=== PATIENT | female | born 1970 | race African-American/Black ===

== ENCOUNTER 2017-01-26 05:33 | Inpatient (IN) | payer MEDICAID ==
[~2017-01-26] VITALS: Ht 165.1 cm; Wt 77.1 kg
[2017-01-26] MEDS ORDERED: LACTATED RINGERS 1,000 ML IV SCH (07:40)
[2017-01-26 08:05] LABS: EOSINOPHILS % 3.4 % (0.0-5.0); HEMATOCRIT. 31.1 % (36.0-48.0); HEMOGLOBIN. 9.8 g/dL (12.0-16.0); LYMPHOCYTES % 22.3 % (20.0-50.0); MEAN CORPUSCULAR HEMOGLOBIN 25.6 pg (28.0-32.0); MEAN CORPUSCULAR VOLUME 80.9 fL (81.0-99.0); MONOCYTES % 9.4 % (2.0-8.0); NEUTROPHILS % 63.9 % (40.0-76.0); PLATELET 319 x1000/uL (130-400); RED BLOOD CELL COUNT 3.84 mill/uL (4.2-5.4); RED CELL DISTRIBUTION WIDTH 17.4 % (11.6-14.6)
[2017-01-26 08:09] LABS: GLUCOSE URINE NEGATIVE (NEGATIVE); KETONES URINE NEGATIVE (NEGATIVE); LEUKOCYTE ESTERASE URINE NEGATIVE (NEGATIVE); NITRITE URINE NEGATIVE (NEGATIVE); OCCULT BLOOD URINE NEGATIVE (NEGATIVE); PROTEIN URINE NEGATIVE (NEGATIVE); SPECIFIC GRAVITY URINE 1.029 (1.005-1.030); UROBILINOGEN URINE 0.2 E.U./dL (0.2-1.0)
[2017-01-26 08:11] LABS: CLARITY URINE CLEAR (CLEAR); COLOR URINE YELLOW (YELLOW)
[2017-01-26 08:13] LABS: UCG SCREEN NEGATIVE
[2017-01-26 08:13] LABS: PARTIAL THROMBOPLASTIN TIME 25.9 sec (23.4-31.0); PROTHROMBIN TIME 10.6 sec (9.4-11.6)
[2017-01-26 08:16] LABS: CARBON DIOXIDE 25 mEq/L (21-32); CHLORIDE 108 mEq/L (98-107)
[2017-01-26] MEDS ORDERED: BACL20TA PO (09:28)
[2017-01-26] MEDS ORDERED: LEVO25TA7 PO (09:28)
[2017-01-26] MEDS ORDERED: LORA10TA7 PO (09:28)
[2017-01-26] MEDS ORDERED: NAPR-681 PO (09:28)
[2017-01-26] MEDS ORDERED: TRAM50TA3 PO (09:28)
[2017-01-26] MEDS ORDERED: MELO-106 PO (09:28)
[2017-01-26] MEDS ORDERED: HYDR-4005 PO (09:28)
[2017-01-26] MEDS ORDERED: GABA-529 PO (09:28)
[2017-01-26] MEDS ORDERED: BUSP5TAB3 PO (09:28)
[2017-01-26] MEDS ORDERED: GABA-531 PO (09:36)
[2017-01-26] MEDS ORDERED: LEVO100T9 PO (09:36)
[2017-01-26] MEDS ORDERED: GELATIN SPONGE,ABSORBABLE SZ 100 ONE (10:33)
[2017-01-26] MEDS ORDERED: LIDOCAINE HCL 1%/EPI 1:200,000 30 ML VIAL ONE (10:34)
[2017-01-26] MEDS ORDERED: THROMBIN (BOVINE) 5000 UNITS/VIAL TOP ONE (10:34)
[2017-01-26] MEDS ORDERED: BACITRACIN ZINC 15GM TUBE TOP ONE (10:34)
[2017-01-26] MEDS ORDERED: BACITRACIN 50,000 UNITS/VIAL ONE (10:35)
[2017-01-26] MEDS ORDERED: NORMAL SALINE 0.9% 10 ML SYR ONE (10:35)
[2017-01-26] MEDS ORDERED: DEXAMETHASONE 4MG/ML 1ML VIAL ONE ×3 (11:17→12:22)
[2017-01-26] MEDS ORDERED: ACETAMINOPHEN 325MG TABLET PO PRN (11:30)
[2017-01-26] MEDS ORDERED: ONDANSETRON HCL 4MG/2ML VIAL IV PRN ×2 (11:30→13:45)
[2017-01-26] MEDS ORDERED: CLONIDINE 0.1MG TABLET PO PRN (11:30)
[2017-01-26] MEDS ORDERED: IPRATROPIUM/ALBUTEROL 0.5-3(2.5)MG/3ML NEB INH PRN (11:30)
[2017-01-26] MEDS ORDERED: DIPHENHYDRAMINE 50MG/ML VIAL IV PRN (11:30)
[2017-01-26] MEDS ORDERED: CEFAZOLIN SODIUM 1000MG/VIAL ONE (12:22)
[2017-01-26] MEDS ORDERED: ROCURONIUM BROMIDE 10MG/ML VIAL 5ML IV ONE (12:22)
[2017-01-26] MEDS ORDERED: HYDROMORPHONE HCL/PF 2MG/ML (OR) ONE (12:42)
[2017-01-26] MEDS ORDERED: LABETALOL HCL 5MG/ML VIAL 20ML IV ONE (12:44)
[2017-01-26] MEDS ORDERED: HYDROMORPHONE HCL/PF 2MG/ML CPJ IV PRN (13:45)
[2017-01-26] MEDS ORDERED: LABETALOL HCL 20MG/4ML CARPUJECT IV PRN (13:45)
[2017-01-26] MEDS ORDERED: MEPERIDINE HCL/PF 25MG/ML CPJ IV PRN (13:45)
[2017-01-26] MEDS ORDERED: GLYCOPYRROLATE 0.2 MG/ML 2ML VIAL ONE (13:51)
[2017-01-26] MEDS ORDERED: NEOSTIGMINE METHYLSULFATE 1MG/ML 10 ML VIAL ONE (13:51)
[2017-01-26] MEDS ORDERED: CEFAZOLIN 1000MG/50ML PREMIX IV SCH (14:00)
[2017-01-26] MEDS ORDERED: ONDANSETRON INJ IV PRN (14:30)
[2017-01-26] MEDS ORDERED: HYDROMORPHONE PCA 10MG/50ML IV PRN (14:30)
[2017-01-26] MEDS ORDERED: NALOXONE INJ IV PRN (14:30)
[2017-01-26] MEDS ORDERED: DIPHENHYDRAMINE INJ IV PRN (14:30)
[2017-01-26 17:40] VITALS: BP 107/59
[2017-01-26 18:00] VITALS: BP 107/59
[2017-01-26] MEDS: CEFAZOLIN 1000MG PREMIX 50 ML IV SCH (23:42)
[2017-01-26] MEDS: DEXT 5%/LACTATED RINGERS 1,000 ML IV SCH (23:44)
[2017-01-27] VITALS: BP 106/50
[2017-01-27 04:00] VITALS: BP 100/48
[2017-01-27 08:00] VITALS: BP 99/51
[2017-01-27] MEDS: CEFAZOLIN 1000MG PREMIX 50 ML IV SCH ×2 (09:27→22:49)
[2017-01-27 12:00] VITALS: BP 104/51
[2017-01-27] MEDS: DEXT 5%/LACTATED RINGERS 1,000 ML IV SCH (15:42)
[2017-01-27] MEDS: MORPHINE SULFATE 2 MG/ML CPJ (NOT FOR IM USE) IV PRN ×2 (19:23→23:44)
[2017-01-27 20:00] VITALS: BP 109/57
[2017-01-28] VITALS: BP 114/65
[2017-01-28 04:00] VITALS: BP 112/57
[2017-01-28] MEDS: MORPHINE SULFATE 2 MG/ML CPJ (NOT FOR IM USE) IV PRN ×4 (04:36→20:08)
[2017-01-28 08:00] VITALS: BP 97/50
[2017-01-28] MEDS: DEXT 5%/LACTATED RINGERS 1,000 ML IV SCH (11:19)
[2017-01-28 12:00] VITALS: BP 129/98
[2017-01-28 16:00] VITALS: BP 113/52
[2017-01-28] MEDS: DOCUSATE SODIUM 100MG CAPSULE PO SCH (16:53)
[2017-01-28] MEDS: LEVOTHYROXINE SODIUM 100MCG TABLET PO SCH (18:23)
[2017-01-28 20:00] VITALS: BP 113/64
[2017-01-28] MEDS: POLYETHYLENE GLYCOL 3350 (17GM) 1 DOSE PACK PO SCH (20:08)
[2017-01-28] MEDS: HYDROCODONE/ACETAMINOPHEN 10/325MG TABLET PO PRN (22:39)
[2017-01-29] VITALS (7 sets, daily range): BP systolic 106–123; BP diastolic 55–83
[2017-01-29] MEDS: LEVOTHYROXINE SODIUM 100MCG TABLET PO SCH (06:20)
[2017-01-29] MEDS: HYDROCODONE/ACETAMINOPHEN 10/325MG TABLET PO PRN ×4 (06:21→19:51)
[2017-01-29] MEDS: DOCUSATE SODIUM 100MG CAPSULE PO SCH ×2 (08:55→17:00)
[2017-01-29] MEDS: DEXT 5%/LACTATED RINGERS 1,000 ML IV SCH (08:57)
[2017-01-29] MEDS: POLYETHYLENE GLYCOL 3350 (17GM) 1 DOSE PACK PO SCH (20:45)
== END 2017-01-29 22:20 | disposition left against medical advice (07) | DRG 310 ==
LOC: OR 05:33 → 6EST 17:40
PROVIDERS: ADMIT Internal Medicine; ATTEND Internal Medicine
PROC: 0SB40ZZ Excision of Lumbosacral Disc, Open Approach (ICD-10-PCS; 2017-01-26)
PROC: 01NR0ZZ Release Sacral Nerve, Open Approach (ICD-10-PCS; 2017-01-26)
PROC: 00NY0ZZ Release Lumbar Spinal Cord, Open Approach (ICD-10-PCS; principal; 2017-01-26 10:00)
DX: M51.17 Intervertebral disc disorders with radiculopathy, lumbosacral region (principal); G62.9 Polyneuropathy, unspecified; M48.02 Spinal stenosis, cervical region; M54.81 Occipital neuralgia; M54.31 Sciatica, right side; M48.06 Spinal stenosis, lumbar region; G89.4 Chronic pain syndrome; E87.6 Hypokalemia; E07.9 Disorder of thyroid, unspecified; D64.9 Anemia, unspecified; G43.909 Migraine, unspecified, not intractable, without status migrainosus; R53.81 Other malaise; R26.81 Unsteadiness on feet
CPT/HCPCS: 36415; 72100; 80048; 81003; 81025; 85025; 85610; 85730; 88304; 88311; 95863; 95925; 95926; 97116; 97162; 97166; 97530; A4216; C1893; J0690; J1100; J1170; J2270; J2710; J3490; J7030; J7120; J7121

== ENCOUNTER 2017-05-19 14:49 | Emergency (ER) | payer MEDICAID ==
[~2017-05-19] VITALS: Ht 165.1 cm; Wt 71.0 kg
[~2017-05-19 14:49] MED LIST: BACL20TA PO; BUSP5TAB3 PO; GABA-531 PO; HYDR-4005 PO; LEVO100T9 PO; LORA10TA7 PO; MELO-106 PO; NAPR-681 PO; TRAM50TA3 PO
[2017-05-19] MEDS ORDERED: CYCLOBENZAPRINE 10MG TABLET PO ONE (18:00)
[2017-05-19] MEDS ORDERED: KETOROLAC 30MG/ML VIAL IM ONE (18:00)
[2017-05-19 20:31] VITALS: BP 103/60
== END 2017-05-19 20:38 | disposition home or self-care (01) ==
LOC: ER 15:14
DX: M54.30 Sciatica, unspecified side (principal); E03.9 Hypothyroidism, unspecified; Z98.1 Arthrodesis status
CPT/HCPCS: 96372; 99283; J1885; Z7610